=== PATIENT | female | born 1945 | race Hispanic/Latino ===

== ENCOUNTER 2018-04-30 08:22 | Day surgery (SDC) | payer OTHER ==
--- NOTE | 2018-04-26 11:07 | RAD REPORT ---
EXAM DESCRIPTION: RAD - Chest Pa And Lat (2 Views) - 04/26/2018 11:00 am CLINICAL HISTORY: preop Chest pain. COMPARISON: Chest Pa And Lat (2 Views) dated 04/14/2017 FINDINGS: The lungs are clear. The heart is normal in size. No displaced fractures. IMPRESSION: No acute or concerning finding suspected.
[2018-04-26 12:36] LABS: Absolute Lymphocytes (CBC) 1.7 K/uL (0.7-4.9); Absolute Monocytes 0.4 K/uL (0.1-1.3); Absolute Neutrophil 3.2 K/uL (1.8-8.0); Basophils % 0.8 % (0-1.3); Eosinophils % 4.1 % (0-4.4); Hematocrit 36.7 % (36.0-45.0); Lymphocytes % 30.3 % (15.3-44.8); MCH 28.9 pg (27.0-35.0); MCV 84.1 fL (80-100); MPV 9.6 fL (7.6-11.3); Monocytes % 7.9 % (3.3-12.3); RBC Red Blood Cell Count 4.37 M/uL (3.86-4.86)
[2018-04-26 12:42] LABS: Bicarbonate 30 mmol/L (21-32); Glucose Level 104 mg/dL (74-106); Potassium 3.8 mmol/L (3.5-5.1); Sodium Level 141 mmol/L (136-145)
[2018-04-26 12:43] LABS: BUN Blood Urea Nitrogen 15 mg/dL (7-18)
[2018-04-26 13:06] LABS: Protime INR 0.99
--- NOTE | 2018-04-26 17:43 | EKG ---
Test Date: 2018-04-26 Test Time: 10:47:22 Warehouse Operations Manager: BETITO MEASUREMENT RESULTS: Intervals: Rate: 64 UT: 216 QRSD: 92 QT: 398 QTc: 410 [place]: P: 3 UT: 216 QRS: -28 T: -11 INTERPRETIVE STATEMENTS: Sinus rhythm with 1st degree AV block Incomplete right bundle branch block Voltage criteria for left ventricular hypertrophy Abnormal ECG Compared to ECG 04/14/2017 12:20:21 First degree AV block now present Incomplete right bundle-branch block now present Myocardial infarct finding no longer present Electronically Signed On 04-26-18 17:42:11 CDT by Remi Campbell
[~2018-04-30 08:22] MED LIST: CLINDAMYCIN INJ 600 MG in NA CHLORIDE 0.9% 50 ML IV ONE
[2018-04-30] MEDS ORDERED: Ringers Lactate 1,000 ML IV ONE (08:46)
[2018-04-30] MEDS ORDERED: PROPOFOL 200 MG/20 ML VIAL IV ONE (09:41)
[2018-04-30] MEDS ORDERED: LIDOCAINE 2% MPF 5 ML VIAL ONE (09:41)
[2018-04-30] MEDS ORDERED: FENTANYL CITR 100 MCG/2 ML ONE (09:41)
[2018-04-30] MEDS ORDERED: MIDAZOLAM HCL 2 MG/2 ML INJ ONE (09:42)
[2018-04-30] MEDS ORDERED: BUPIVACAINE 0.25% PF 10 ML VIAL ONE (09:46)
[2018-04-30] MEDS: MEPERIDINE HCL 50 MG/ML AMP ONE ×3 (11:00→11:18)
--- NOTE | 2018-04-30 11:03 | P.BOP ---
Preoperative diagnosis: left knee medial meniscus tear Postoperative diagnosis: same, left knee lateral meniscus tear Primary procedure: left knee arthroscopic partial medial and lateral meniscectomies Loss Control Representative: NONE,NONE Estimated blood loss: <5 cc Specimen: none Findings: see dictation Anesthesia: General Complications: None Implants: none Fluids & blood products: per anesthesia record; 29 mins @ 250 mmHg Transferred to: Recovery Room Condition: Good
[2018-04-30] MEDS ORDERED: HYDROCODONE/APAP 7.5/325 MG TAB ONE (12:17)
--- NOTE | 2018-05-01 00:15 | OP ---
Date of Procedure: 04/30/2018 Surgeon: Reji Mejia MD Preoperative Diagnosis: Left knee medial meniscus tear. Postoperative Diagnoses: 1.Left knee medial meniscus tear. 2.Left knee lateral meniscus tear. Procedure Performed: Left knee arthroscopic partial medial and lateral meniscectomies. Anesthesia: General LMA. Fluids: Per Anesthesia record. Estimated Blood Loss: Less than 5 cc. Tourniquet Time: 29 minutes at 250 mmHg. Implants: None. Complications: None. Indication For Procedure: Liberty is a 72-year-old female who presented to my clinic with physical exam findings as well as MRI findings consistent with left knee medial meniscus tear as well as osteo arthritis. She failed conservative treatment measures including corticosteroid injections and given her continued pain and mechanical symptoms, I recommended arthroscopic treatment. She expressed unde rstanding and elected to proceed with operative treatment. Description Of Procedure: After informed consent was obtained, the patient was identified in the pre operative holding area. The left lower extremity was marked. The patient was then brought back to [facility] operating room, transferred to the operating table in supine fashion, and placed under general LMA anesthesia. The left lower extremity was then prepped and draped in usual sterile fashion. A time- out was initiated. The correct patient and procedure were confirmed and identified. The patient did receive her preoperative prophylactic antibiotics. The left lower extremity was then exsanguinated and tourniquet was inflated to 250 mmHg. Standard anteromedial and anterolateral portals were create d and arthroscope was brought into the anterolateral portal and a diagnostic arthroscopy was performe d. Arthroscope was brought into the patellofemoral joint. There was some mild chondromalacia change s of the undersurface of patella as well as trochlear groove. There were no loose bodies found withi n the medial lateral gutters. The arthroscope was then brought in the medial compartment and it was noted the patient had some grade 3 changes of her medial femoral condyle and she was noted to have a complex tear of the medial meniscal body. A partial medial meniscectomy was performed using the arth roscopic shaver and meniscal biter to stable meniscal borders. After this was performed, medial meni scus was found to be stable to probe. The arthroscope was then brought into the intercondylar notch. The patient was noted to have an intact ACL and PCL. The arthroscope was then brought into the lat eral compartment where the patient was noted to have some fraying and a small lateral meniscus tear. Partial lateral meniscectomy was performed using an arthroscopic shaver. There was no significant c hondromalacia noted of the lateral femoral condyle or lateral tibial plateau. The arthroscopic instr uments were then removed without complication. The portals were irrigated with normal saline and mandi sed using a 3-0 Monocryl. Sterile dressings were applied. Tourniquet was let down. The patient was awakened and transferred to PACU in stable condition. Postoperative Plan: We will proceed with post meniscectomy protocol with physical therapy. She will follow up in my clinic in 1 week for wound check and dressing change. 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 She will follow up wit h her primary care provider to discuss long-term anticoagulation. CV/MODL Voice ID: [id number] Report ID: [id number]
== END 2018-04-30 13:05 | disposition home or self-care (01) ==
LOC: OR 08:22
PROVIDERS: ATTEND Orthopaedic Surgery Sports Medicine
PROC: 0SBD4ZZ Excision of Left Knee Joint, Percutaneous Endoscopic Approach (ICD-10-PCS; 2018-04-30)
PROC: 0SBD4ZZ Excision of Left Knee Joint, Percutaneous Endoscopic Approach (ICD-10-PCS; principal; 2018-04-30 09:45)
DX: S83.242A Other tear of medial meniscus, current injury, left knee, initial encounter (principal); I10 Essential (primary) hypertension; Z88.6 Allergy status to analgesic agent; Z88.0 Allergy status to penicillin; Z82.49 Family history of ischemic heart disease and other diseases of the circulatory system; Z80.9 Family history of malignant neoplasm, unspecified; Z83.3 Family history of diabetes mellitus
CPT/HCPCS: 29880; 36415; 71046; 80048; 85025; 85610; 85730; 93005; J2175; J2250; J3010

== ENCOUNTER 2018-07-02 07:59 | Day surgery (SDC) | payer OTHER ==
[2018-07-02 09:45] LABS: Absolute Lymphocytes (CBC) 1.5 K/uL (0.7-4.9); Absolute Monocytes 0.4 K/uL (0.1-1.3); Basophils % 0.5 % (0-1.3); Eosinophils % 3.3 % (0-4.4); Hematocrit 36.1 % (36.0-45.0); Lymphocytes % 23.8 % (15.3-44.8); MPV 9.1 fL (7.6-11.3); Monocytes % 7.2 % (3.3-12.3); RBC Red Blood Cell Count 4.29 M/uL (3.86-4.86)
[2018-07-02] MEDS ORDERED: Ringers Lactate 1,000 ML IV ONE (09:47)
[2018-07-02] MEDS ORDERED: CEFAZOLIN 1GM (PREMIX IV) 1 GM/50 ML BAG ONE (09:50)
[2018-07-02 10:04] LABS: BUN Blood Urea Nitrogen 12 mg/dL (7-18); Bicarbonate 30 mmol/L (21-32); Glucose Level 118 mg/dL (74-106); Potassium 3.9 mmol/L (3.5-5.1); Sodium Level 139 mmol/L (136-145)
--- NOTE | 2018-07-02 10:04 | RAD REPORT ---
EXAM DESCRIPTION: Evelio Fernando (2 Views)07/02/2018 9:48 am CLINICAL HISTORY: Preop COMPARISON: April 2018 FINDINGS: The lungs appear clear of acute infiltrate. The heart is normal size IMPRESSION: No acute abnormalities displayed
[2018-07-02] MEDS ORDERED: LIDOCAINE 1% MPF 30 ML VIAL ONE (10:35)
[2018-07-02] MEDS ORDERED: PROPOFOL 200 MG/20 ML VIAL IV ONE (10:47)
[2018-07-02] MEDS ORDERED: LIDOCAINE 2% MPF 5 ML VIAL ONE (10:47)
[2018-07-02] MEDS ORDERED: ONDANSETRON 4 MG/2 ML VIAL ONE (10:51)
[2018-07-02] MEDS ORDERED: FENTANYL CITR 100 MCG/2 ML ONE (10:59)
[2018-07-02] MEDS: MEPERIDINE HCL 25 MG/0.5 ML ONE ×2 (12:20→12:25)
--- NOTE | 2018-07-02 12:49 | EKG ---
Test Date: 2018-07-02 Test Time: 09:47:44 Ceramic Design Engineer: SURINDER MEASUREMENT RESULTS: Intervals: Rate: 65 DC: 204 QRSD: 92 QT: 404 QTc: 420 [place]: P: 2 DC: 204 QRS: -21 T: 8 INTERPRETIVE STATEMENTS: Normal sinus rhythm Voltage criteria for left ventricular hypertrophy Abnormal ECG Compared to ECG 04/26/2018 10:47:22 First degree AV block no longer present Incomplete right bundle-branch block no longer present Electronically Signed On 07-02-18 12:48:19 ELECTRICAL WORKER by Remi Campbell
[2018-07-02] MEDS ORDERED: HYDROCODONE/APAP 7.5/325 MG TAB ONE (13:05)
--- NOTE | 2018-07-03 01:10 | OP ---
Date of Procedure: 07/02/2018 Surgeon: Apollo Rodríguez MD Preoperative Diagnoses: Left side vision change, headache, rule out temporal arteritis. Postoperative Diagnoses: Left side vision change, headache, rule out temporal arteritis. Procedure: Left temporal artery biopsy. Estimated Blood Loss: Minimal. Specimen: Left temporal artery and probably left temporal vein. Findings: As above. Anesthesia: General. Complications: None. Disposition: Patient tolerated the procedure in stable condition and taken to Recovery in good gener al condition. Procedure In Detail: The patient was brought to the OR and placed in supine position. General anest hesia was begun. The patient was prepped and draped in the usual sterile fashion. Again, a Doppler device was used to identify a branch of the temporal artery and a 4 cm incision was made anteriorly a nd superiorly to the left ear. Subcutaneous tissues divided. There were 2 blood vessels present, on e was an artery and one was a vein. As I did not know which was which, I could only guess. Therefor e, I excised pieces of both of those structures. Proximal and distal control obtained with clamps, a nd then 4-0 silk used to tie off the proximal and distal ends, and a 4 cm vessel excised and sent to Pathology separately. Then, the wound was irrigated and bleeding controlled with cautery. 4-0 chrom ic was used to reapproximate the subcutaneous tissue and close the skin. Sterile dressing was applie d. The patient was awakened and taken to Recovery in good general condition. Discharge Note: The patient will go to day surgery, then home when stable. Disposition: Home. Condition: Stable. Discharge Instructions: Resume home medications and diet. . Activities, as tolerated. No heavy li fting. Remove outer dressing in 2 days. Shower. Keep wound clean and dry. Keep steri-strips on at all times. Follow up in my office in 2 weeks, call for appointment. Tylenol No. 3, one tablet p.o. q.4 h. p.r.n. pain. Follow up with Dr. Clark Nagy in 1 week. ESTELITA/HUSEYIN Voice ID: [id number] Report ID: [id number]
== END 2018-07-02 13:35 | disposition home or self-care (01) ==
LOC: OR 07:59
PROVIDERS: ATTEND Surgery
PROC: 03BT0ZX Excision of Left Temporal Artery, Open Approach, Diagnostic (ICD-10-PCS; principal; 2018-07-02 10:30)
DX: R51 Headache (principal); I70.8 Atherosclerosis of other arteries; H53.9 Unspecified visual disturbance; I10 Essential (primary) hypertension; K21.9 Gastro-esophageal reflux disease without esophagitis; E66.9 Obesity, unspecified; Z88.0 Allergy status to penicillin; Z88.6 Allergy status to analgesic agent
CPT/HCPCS: 36415; 37609; 71046; 80048; 85025; 88305; 93005; J0690; J2175; J2405; J2704; J3010

== ENCOUNTER 2018-07-12 20:34 | Emergency (ER) | payer OTHER ==
[2018-07-12] MEDS ORDERED: KETOROLAC 30 MG/ML INJ ONE (21:28)
--- NOTE | 2018-07-12 21:30 | RAD REPORT ---
EXAM DESCRIPTION: CT - Head C Spine Cap Wo Con - 07/12/2018 9:08 pm TECHNIQUE: Computed axial tomography of the head and cervical spine was obtained. Coronal and sagitt al reconstruction was performed Computed axial tomography of the chest, abdomen and pelvis was obtained. Contrast was not requested. All CT scans are performed using dose optimization technique as appropriate and may include automated exposure control or mA/KV adjustment according to patient size. CLINICAL HISTORY: Head and neck injury with chest and abdominal pain status post fall COMPARISON: None FINDINGS: Left posterior scalp hematoma without underlying skull fracture An intracranial bleed is not seen. The ventricles are normal in caliber. An extra-axial fluid collection is not noted. . Fluid within the sinuses/mastoids is not seen. A cervical fracture is not seen. No dislocation is noted. The evaluation of mediastinum, rosanne, vessels, solid organs and bowel are limited secondary to the lac k of contrast administration. A mediastinal hematoma is not noted. A pleural effusion is not seen. A lung contusion is not present. 4 millimeter left upper lobe nodule The liver,spleen, pancreas, adrenals,kidneys and bladder do not demonstrate atraumatically injury. IMPRESSION: 1. No acute intracranial abnormality is seen. 2. A cervical fracture is not visualized. If the patient continues have symptoms to suggest intracran ial/spinal cord pathology MRI be recommended 3. No traumatic abnormality involving the chest/abdomen/pelvis. 4. 4 millimeter left upper lobe nodule. If the patient is high risk per Fleischner guidelines followu p CT chest in 1 year would be recommended
--- NOTE | 2018-07-12 21:39 | ER ---
Nurse's Notes [facility] Name: Liberty Gutierrez Age: 72 yrs Sex: Female : 1945 Arrival Date: 07/12/2018 Time: 20:38 Bed 19 Private MD: Frankie Elder Diagnosis: Acute post-traumatic headache Presentation: 07/12 20:42 Presenting complaint: Patient states: Reports slip and fall while at a store today at aj 1920. Patient hit back of head on floor. Denies LOC. Reports dizziness and nausea. Care prior to arrival: None. Mechanism of Injury: Fall from standing position. Trauma event details: Injury occurred in the [facility], Injury occurred: in a public building. Injury occurred: July 12, 2018 Injury occurred at: 19:20. 20:42 Acuity: TISHA 3 aj 20:42 Method Of Arrival: Wheelchair aj Trauma Activation: Alert Physician: ED Physician; Name: ; Notified At: ; Arrived At: Physician: General Surgeon; Name: ; Notified At: ; Arrived At: Physician: Radiology; Name: ; Notified At: ; Arrived At: Physician: Respiratory; Name: ; Notified At: ; Arrived At: Physician: Lab; Name: ; Notified At: ; Arrived At: Historical: - Allergies: 20:46 PENICILLINS; aj 20:46 Morphine; aj - PMHx: 20:46 Hypertension; aj - Immunization history: Last tetanus immunization: unknown. - Social history:: Smoking status: Patient/guardian denies using tobacco, Patient/guardian denies using alcohol, street drugs, The patient lives with family. - Ebola Screening: : Patient negative for fever greater than or equal to 101.5 degrees Fahrenheit, and additional compatible Ebola Virus Disease symptoms Patient denies exposure to infectious person Patient denies travel to an Ebola-affected area in the 21 days before illness onset No symptoms or risks identified at this time. - Family history:: not pertinent. - Hospitalizations: : No recent hospitalization is reported. Screenin:00 Abuse screen: Denies threats or abuse. Denies injuries from another. Nutritional rr5 screening: No deficits noted. Tuberculosis screening: No symptoms or risk factors identified. Fall Risk Ambulatory Aid- Crutches/Cane/Walker (15 pts). Total [place]ll[place] Fall Scale indicates Low Risk Score (25-44 pts). Fall prevention measures have been instituted. Side Rails Up X 2 1:1 attendant Assigned to Pt. Frequent Obs/Assesments occuring Family Present and informed to notify staff if they need to leave bedside As available Patient and Family Educated on Fall Prevention Program and strategies. Primary Survey: 20:42 NO uncontrolled hemorrhage observed. Breathing/Chest: Respiratory pattern: regular, aj Respiratory effort: spontaneous, unlabored, Breath sounds: clear, Chest inspection: symmetrical rise and fall of the chest. Circulation: Skin color: pink, Skin temperature: warm, dry. Disability Alert. Assessment: 20:42 General: Appears in no apparent distress. comfortable, Behavior is calm, cooperative, aj appropriate for age. Pain: Complains of pain in left parietal area, right parietal area and occipital area. Neuro: Level of Consciousness is awake, alert, obeys commands, Oriented to person, place, time, situation, Appropriate for age. Respiratory: Airway is patent Respiratory effort is even, unlabored, Respiratory pattern is regular, symmetrical. Derm: Skin is intact, is healthy with good turgor, Skin is pink, warm \T\ dry. normal. Injury Description: Bruise sustained to scalp. 21:00 Injury Description: swelling at scalp area noted (occipital parietal area). rr5 21:00 General: Appears in no apparent distress. comfortable, Behavior is calm, cooperative, rr5 appropriate for age. Pain:. Pain: Complains of pain in occipital parietal area Pain does not radiate. Pain currently is 10 out of 10 on a pain scale. Quality of pain is described as aching. Neuro: Level of Consciousness is awake, alert, obeys commands, Oriented to person, place, time, situation. Cardiovascular: Capillary refill < 3 seconds Patient's skin is warm and dry. Respiratory: Airway is patent Respiratory effort is even, unlabored, Respiratory pattern is regular, symmetrical. GI: : No signs and/or symptoms were reported regarding the genitourinary system. EENT: No signs and/or symptoms were reported regarding the EENT system. Derm: Skin is intact, is healthy with good turgor, Skin is pink, warm \T\ dry. normal. Musculoskeletal: No signs and/or symptoms reported regarding the musculoskeletal system. 21:30 Reassessment: Patient appears in no apparent distress at this time. Patient and/or rr5 family updated on plan of care and expected duration. Pain level reassessed. Patient is alert, oriented x 3, equal unlabored respirations, skin warm/dry/pink. feeling better now. Patient states symptoms have improved. 22:00 Reassessment: discharge instruction given and explained without complaints made. rr5 Vital Signs: 20:42 BP 173 / 76; Pulse 67; Resp 20; Temp 98.2; Pulse Ox 96% on R/A; Weight 81.65 kg; Height aj 5 ft. 4 in. (162.56 cm); 21:30 BP 146 / 68; Pulse 66; Resp 18; Pulse Ox 99% ; rr5 22:00 BP 133 / 70; Pulse 69; Resp 18; Pulse Ox 99% ; rr5 20:42 Body Mass Index 30.90 (81.65 kg, 162.56 cm) aj [place] Coma Score: 20:42 Eye Response: spontaneous(4). Verbal Response: oriented(5). Motor Response: obeys aj commands(6). Total: 15. Trauma Score (Adult): 20:42 Eye Response: spontaneous(1); Verbal Response: oriented(1); Motor Response: obeys aj commands(2); Systolic BP: > 89 mm Hg(4); Respiratory Rate: 10 to 29 per min(4); [place] Score: 15; Trauma Score: 12 ED Course: 20:38 Patient arrived in ED. es 20:38 Frankie Elder MD is Private Physician. es 20:44 Triage completed. aj 20:46 Arm band placed on left wrist. Patient placed in an exam room. aj 20:47 Abby Thomas MD is Attending Physician. ma2 20:53 Ryan Painting RN is Primary Nurse. rr5 21:00 Patient has correct armband on for positive identification. Placed in gown. Bed in low rr5 position. Call light in reach. Side rails up X2. 21:[address] via stretcher. nj 21:08 CT completed. Patient tolerated procedure well. Patient moved back from CT. nj 21:08 CT Traumagram (Head C Spine CAP wo con) In Process Unspecified. EDMS 22:00 No provider procedures requiring assistance completed. Patient did not have IV access rr5 during this emergency room visit. Administered Medications: 21:26 Drug: TORadol 60 mg Route: IM; Site: left gluteus; rr5 22:00 Follow up: Response: No adverse reaction; Medication administered at discharge. rr5 Outcome: 21:38 Discharge ordered by . celsa 22:00 Discharged to home ambulatory, with family. rr5 22:00 Condition: stable 22:00 Discharge instructions given to patient, family, Instructed on discharge instructions, follow up and referral plans. Demonstrated understanding of instructions, follow-up care. 22:24 Patient left the ED. rr5 Signatures: Dispatcher [employer] Nieves Rock, RN RN Dia Magallanes Nathan nj Alzahri, Mohammad, MD MD ma2 Ryan Painting RN RN rr5
--- NOTE | 2018-07-12 21:39 | EDPHYS ---
Physician Documentation [facility] Name: Liberty Gutierrez Age: 72 yrs Sex: Female : 1945 Arrival Date: 07/12/2018 Time: 20:38 Bed 19 Private MD: Frankie Elder ED Physician Abby Thomas HPI: 07/12 20:52 This 72 yrs old Female presents to ER via Wheelchair with complaints of Fall ma2 Injury. 20:52 Details of fall: The patient fell from an upright position. Onset: The symptoms/episode ma2 began/occurred suddenly, 1 hour(s) ago. Associated injuries: The patient sustained injury to the head, injury to the chest. Severity of symptoms: At their worst the symptoms were moderate, in the emergency department the symptoms are unchanged. The patient has not experienced similar symptoms in the past. Historical: - Allergies: 20:46 PENICILLINS; aj 20:46 Morphine; aj - PMHx: 20:46 Hypertension; aj - Immunization history: Last tetanus immunization: unknown. - Social history:: Smoking status: Patient/guardian denies using tobacco, Patient/guardian denies using alcohol, street drugs, The patient lives with family. - Ebola Screening: : Patient negative for fever greater than or equal to 101.5 degrees Fahrenheit, and additional compatible Ebola Virus Disease symptoms Patient denies exposure to infectious person Patient denies travel to an Ebola-affected area in the 21 days before illness onset No symptoms or risks identified at this time. - Family history:: not pertinent. - Hospitalizations: : No recent hospitalization is reported. ROS: 20:52 Constitutional: Negative for fever, chills, and weight loss. ma2 20:52 MS/extremity: Positive for pain, Negative for bite, decreased range of motion, rash, tenderness. 20:52 All other systems are negative. Exam: 20:52 Constitutional: This is a well developed, well nourished patient who is awake, alert, ma2 and in no acute distress. 20:52 Chest/axilla: Normal chest wall appearance and motion. Nontender with no deformity. No lesions are appreciated. Cardiovascular: Regular rate and rhythm with a normal S1 and S2. No gallops, murmurs, or rubs. Normal PMI, no JVD. No pulse deficits. Respiratory: Lungs have equal breath sounds bilaterally, clear to auscultation and percussion. No rales, rhonchi or wheezes noted. No increased work of breathing, no retractions or nasal flaring. 20:52 Abdomen/GI: Soft, non-tender, with normal bowel sounds. No distension or tympany. No guarding or rebound. No evidence of tenderness throughout. MS/ Extremity: Pulses equal, no cyanosis. Neurovascular intact. Full, normal range of motion. Neuro: Awake and alert, GCS 15, oriented to person, place, time, and situation. Cranial nerves II-XII grossly intact. Motor strength 5/5 in all extremities. Sensory grossly intact. Cerebellar exam normal. Normal gait. 20:52 Head/face: Exam is negative for abrasion(s), contusion, deformity, laceration(s), raccoon eyes, Noted is hematoma. 20:52 Chest/axilla: Palpation: tenderness, that is moderate, of the left lateral posterior chest. Vital Signs: 20:42 BP 173 / 76; Pulse 67; Resp 20; Temp 98.2; Pulse Ox 96% on R/A; Weight 81.65 kg; Height aj 5 ft. 4 in. (162.56 cm); 21:30 BP 146 / 68; Pulse 66; Resp 18; Pulse Ox 99% ; rr5 22:00 BP 133 / 70; Pulse 69; Resp 18; Pulse Ox 99% ; rr5 20:42 Body Mass Index 30.90 (81.65 kg, 162.56 cm) aj [place] Coma Score: 20:42 Eye Response: spontaneous(4). Verbal Response: oriented(5). Motor Response: obeys aj commands(6). Total: 15. Trauma Score (Adult): 20:42 Eye Response: spontaneous(1); Verbal Response: oriented(1); Motor Response: obeys aj commands(2); Systolic BP: > 89 mm Hg(4); Respiratory Rate: 10 to 29 per min(4); Jose Alberto Score: 15; Trauma Score: 12 MDM: 20:47 Patient medically screened. ma2 20:52 Differential diagnosis: abrasion, contusion, fracture, multiple trauma, sprain, strain. ma2 21:38 Data reviewed: vital signs, nurses notes, radiologic studies. Counseling: I had a ma2 detailed discussion with the patient and/or guardian regarding: the historical points, exam findings, and any diagnostic results supporting the discharge/admit diagnosis, the presence of at least one elevated blood pressure reading (>120/80) during this emergency department visit, the need for outpatient follow up. Response to treatment: the patient's symptoms have resolved after treatment. 07/12 20:52 Order name: CT Traumagram (Head C Spine CAP wo con); Complete Time: 21:33 ma2 Administered Medications: 21:26 Drug: TORadol 60 mg Route: IM; Site: left gluteus; rr5 22:00 Follow up: Response: No adverse reaction; Medication administered at discharge. rr5 Disposition: 07/12/18 21:38 Discharged to Home. Impression: Acute post-traumatic headache. - Condition is Stable. - Discharge Instructions: Muscle Pain, Adult, Fall Prevention in Hospitals, Adult. - Medication Reconciliation Form, Thank You Letter, Antibiotic Education, Prescription Opioid Use form. - Follow up: Private Physician; When: Tomorrow; Reason: Continuance of care. Signatures: Dispatcher [employer] Nieves Rock RN RN aj Alzahri, Mohammad, MD MD ma2 Ryan Painting RN RN rr5 Corrections: (The following items were deleted from the chart) 22: 21:38 07/12/2018 21:38 Discharged to Home. Impression: Acute post-traumatic headache. rr5 Condition is Stable. Forms are Medication Reconciliation Form, Thank You Letter, Antibiotic Education, Prescription Opioid Use. Follow up: Private Physician; When: Tomorrow; Reason: Continuance of care. ma2
== END 2018-07-12 22:24 | disposition home or self-care (01) ==
LOC: ER 20:34
DX: G44.319 Acute post-traumatic headache, not intractable (principal); W19.XXXA Unspecified fall, initial encounter; Y93.9 Activity, unspecified; Y92.9 Unspecified place or not applicable; I10 Essential (primary) hypertension; Z88.0 Allergy status to penicillin; Z88.5 Allergy status to narcotic agent
CPT/HCPCS: 70450; 71250; 72125; 96372; 99284

== ENCOUNTER 2019-06-06 12:33 | Emergency (ER) | payer OTHER ==
[2019-06-06] MEDS ORDERED: TRAMADOL HCL 50 MG TAB ONE (13:06)
--- NOTE | 2019-06-06 13:49 | RAD REPORT ---
EXAM DESCRIPTION: CT - [id number] - 06/06/2019 1:19 pm CLINICAL HISTORY: Trip and COMPARISON: None. TECHNIQUE: Axial 5 mm thick images of the head were obtained. Axial 2 mm thick images of the cervic al spine were obtained with sagittal and coronal reconstruction images generated and reviewed. All CT scans are performed using dose optimization technique as appropriate and may include automated exposure control or mA/KV adjustment according to patient size. FINDINGS: No intracranial hemorrhage, mass, edema or acute intracranial finding. No suspicion for acute infarct ion. No extra-axial fluid collections. Mastoid air cells and paranasal sinuses are clear. No globe or orbit abnormality seen. Mild atrophy and chronic ischemic changes are present. Ventricles are in pro portion. Cervical body height and alignment are normal. No disk space narrowing. No fracture or acute bony abn ormality. Prominent anterior disc bulge and endplate spurring changes are present C4-C7. Central josette l detail is inherently limited. No paraspinal mass or hematoma. IMPRESSION: Atrophy and chronic ischemic changes are present but no acute intracranial finding. Cervical spine degenerative changes are present without an acute finding.
--- NOTE | 2019-06-06 13:52 | RAD REPORT ---
EXAM DESCRIPTION: CT - Thorax Wo Con - 06/06/2019 1:19 pm CLINICAL HISTORY: Left anterior chest and rib pain COMPARISON: CT trauma imaging June 2018 TECHNIQUE: Axial 5 mm thick images of the chest were obtained without IV contrast. All CT scans are performed using dose optimization technique as appropriate and may include automated exposure control or mA/KV adjustment according to patient size. FINDINGS: No acute mass or infiltrate in the lung parenchyma. A 4-5 mm noncalcified nodule in the la teral left upper lung field (image 19/56) has not changed since June 2018. No other significant l bhavna parenchymal process. No pleural thickening or pleural effusion. No pneumothorax. No abnormal mediastinal or hilar masses or lymphadenopathy seen. No gross aortic or pulmonary artery finding suspected. No pericardial thickening or effusion. No rib fracture or focal rib lesion identifiable. No chest wall mass. Patient has degenerative change at the left shoulder joint. The partially imaged shoulder joint and clavicle show no acute findings. Prominent thoracic spine degenerative changes are present with bridging ossification. No compression fracture or pathologic bone process. IMPRESSION: No significant or suspicious CT chest finding identifiable. The small left upper lobe pulmonary nodule has not changed size in 11 months. At less than 6 mm this is not regarded as suspicious. No additional follow-up is felt to be warranted. No chest wall abnormality or rib lesion to explain patient's anterior left rib pain history.
--- NOTE | 2019-06-06 13:57 | RAD REPORT ---
EXAM DESCRIPTION: RAD - Hip Right 2 View - 06/06/2019 1:39 pm CLINICAL HISTORY: Fall, right hip pain COMPARISON: None. FINDINGS: AP and frog-leg views of the right hip were obtained. There is no fracture or dislocation . No acute or destructive bony process seen. Minimal pubic symphysis and SI joint degenerative hdz es. IMPRESSION: Negative right hip examination for acute findings.
--- NOTE | 2019-06-06 13:58 | RAD REPORT ---
EXAM DESCRIPTION: RAD - Knee Right 3 View - 06/06/2019 1:39 pm CLINICAL HISTORY: Fall, knee pain COMPARISON: Right knee December 2012 FINDINGS: Total knee prosthesis has been placed since prior imaging. No fracture of the [place] bone. No radiographic evidence for loosening. No implant or [place] bone acute finding.No joint effusion se en. No foreign body or other soft tissue abnormality. IMPRESSION: Negative right knee for acute bone or implant finding. No acute joint finding.
--- NOTE | 2019-06-06 13:59 | RAD REPORT ---
EXAM DESCRIPTION: RAD - Knee Left 3 View - 06/06/2019 1:39 pm CLINICAL HISTORY: Fall, left knee pain COMPARISON: December 2012 FINDINGS: No fracture, dislocation or periosteal reaction.No joint effusion seen. Minimal medial com partment narrowing is present. Medial and lateral compartment marginal spurring present and there is spurring along the articular margins of the patella. Mild spur at the quadriceps attachment. No soft tissue abnormality. IMPRESSION: Left knee degenerative changes are present showing minimal progression from 2013. No acute bone or joint finding. Clinical concerns for internal derangement or occult bony injury could be further assessed with MR im aging.
--- NOTE | 2019-06-06 14:00 | RAD REPORT ---
EXAM DESCRIPTION: RAD - Wrist Left 3 View - 06/06/2019 1:39 pm CLINICAL HISTORY: Fall from standing, left wrist pain COMPARISON: None. FINDINGS: No fracture is identified. There is no dislocation or periosteal reaction noted. No foreig n body or other soft tissue abnormality. Patient has carpal bone degenerative change relatively mild for age. No destructive bone process. IMPRESSION: Negative left wrist examination.
--- NOTE | 2019-06-06 14:20 | EDPHYS ---
Physician Documentation [facility] Name: Liberty Gutierrez Age: 73 yrs Sex: Female : 1945 Arrival Date: 06/06/2019 Time: 12:37 Bed 24 Private MD: Frankie Elder ED Physician Jey Leblanc HPI: 06/06 13:06 This 73 yrs old Female presents to ER via Ambulatory with complaints of Fall pm1 Injury. 13:06 Details of fall: The patient fell from an upright position, while standing. Onset: The pm1 symptoms/episode began/occurred last night. Associated injuries: The patient sustained injury to the head, pain, bent the right side of glasses and had right sided headache that resolved with ibuprofen this AM, injury to the chest, specifically the left breast, pain, right lateral aspect of neck, pain, left knee and right knee, contusion, left wrist, pain, right hip, pain. Severity of symptoms: in the emergency department the symptoms have improved. The patient has not experienced similar symptoms in the past. The patient has been recently seen by a physician: the patient's primary care provider, Dr. Owen with different complaint(s), Left sided neck pain. Has physical therapy next week for her left sided neck pain and dizziness. 13:06 Patient was walking in the dark and missed a step at her daughter's house and landed pm1 with her left hand forward and hit a couch, and then landed on the ground on her right side and knees. Historical: - Allergies: 12:45 Morphine; hb 12:45 PENICILLINS; hb - Home Meds: 12:45 metoprolol tartrate 100 mg Oral tab 1 tab once daily [Active]; meclizine Oral [Active]; hb - PMHx: 12:45 Hypertension; Vertigo; hb - Immunization history:: Adult Immunizations up to date. - Social history:: Smoking status: Patient/guardian denies using tobacco. - Ebola Screening: : No symptoms or risks identified at this time. ROS: 13:06 Constitutional: Negative for fever, chills, and weight loss, Eyes: Negative for injury, pm1 pain, redness, and discharge, ENT: Negative for injury, pain, and discharge. 13:06 Cardiovascular: Negative for chest pain, palpitations, and edema, Respiratory: Negative for shortness of breath, cough, wheezing, and pleuritic chest pain, Abdomen/GI: Negative for abdominal pain, nausea, vomiting, diarrhea, and constipation, Back: Negative for injury and pain. 13:06 Neuro: Negative for headache, weakness, numbness, tingling, and seizure. 13:06 Neck: Positive for pain with movement, of the right lateral aspect of neck, Negative for bony tenderness. 13:06 MS/extremity: Positive for pain, of the right hip and right knee and left wrist and left knee, Negative for decreased range of motion, deformity. 13:06 Skin: Positive for ecchymosis, of the right knee, Negative for swelling. Exam: 13:06 Constitutional: This is a well developed, well nourished patient who is awake, alert, pm1 and in no acute distress. Head/Face: Normocephalic, atraumatic. Cardiovascular: Regular rate and rhythm with a normal S1 and S2. No gallops, murmurs, or rubs. Normal PMI, no JVD. No pulse deficits. Respiratory: Lungs have equal breath sounds bilaterally, clear to auscultation and percussion. No rales, rhonchi or wheezes noted. No increased work of breathing, no retractions or nasal flaring. Abdomen/GI: Soft, non-tender, with normal bowel sounds. No distension or tympany. No guarding or rebound. No evidence of tenderness throughout. Back: No spinal tenderness. No costovertebral tenderness. Full range of motion. 13:06 Skin: Warm, dry with normal turgor. Normal color with no rashes, no lesions, and no evidence of cellulitis. 13:06 Neck: External neck: crepitus, is not appreciated, tenderness, right lateral side of neck, C-spine: vertebral tenderness, is not appreciated. 13:06 Chest/axilla: Inspection: normal, Palpation: tenderness, that is mild, of the left breast, that totally reproduces the patient's complaints. 13:06 Musculoskeletal/extremity: Extremities: grossly normal except: noted in the right hip: tenderness, noted in the right knee: contusion, tenderness, noted in the left knee: tenderness, Noted in left wrist: tenderness, no evidence of decreased ROM, deformity. Vital Signs: 12:44 BP 146 / 72; Pulse 66; Resp 16; Temp 98.2; Pulse Ox 97% on R/A; Weight 81.65 kg; Height hb 5 ft. 2 in. (157.48 cm); Pain 5/10; 12:44 Body Mass Index 32.92 (81.65 kg, 157.48 cm) hb MDM: 12:46 Patient medically screened. pm1 14:15 Data reviewed: vital signs. Data interpreted: Pulse oximetry: on room air is 97 %. pm1 Interpretation: normal. Counseling: I had a detailed discussion with the patient and/or guardian regarding: the historical points, exam findings, and any diagnostic results supporting the discharge/admit diagnosis, radiology results, the need for outpatient follow up, to return to the emergency department if symptoms worsen or persist or if there are any questions or concerns that arise at home. 06/06 12:59 Order name: CT Head C Spine; Complete Time: 14:08 pm1 06/06 12:59 Order name: CT Chest Wo Con; Complete Time: 14:08 pm1 06/06 12:59 Order name: Hip Right 2 View XRAY; Complete Time: 14:08 pm1 06/06 12:59 Order name: Knee Right 3 View XRAY; Complete Time: 14:08 pm1 06/06 12:59 Order name: Knee Left 3 View XRAY; Complete Time: 14:08 pm1 06/06 12:59 Order name: Wrist Left (3 View) XRAY; Complete Time: 14:08 pm1 06/06 14:26 Order name: Wrist Splint; Complete Time: 14:36 pm1 Administered Medications: 13:08 Drug: traMADol 50 mg Route: PO; aj1 Disposition: 06/07 07:02 Co-signature as Attending Physician, Jey Leblanc MD Did not see or evaluate patient. ps1 Signing chart for administrative purposes. Not an endorsement of care. . Disposition: 06/06/19 14:19 Discharged to Home. Impression: Fall on same level from slipping, tripping and stumbling, Pain in left wrist, Pain in right hip, Contusion of left knee, Contusion of right knee, Contusion of left front wall of thorax. - Condition is Stable. - Discharge Instructions: Contusion, Chest Contusion, Adult, Wrist Pain, [id number], Hip Pain. - Prescriptions for Tramadol 50 mg Oral Tablet - take 1 tablet by ORAL route every 8 hours as needed; 12 tablet. - Medication Reconciliation Form, Thank You Letter, Antibiotic Education, Prescription Opioid Use form. - Follow up: Emergency Department; When: As needed; Reason: Worsening of condition. Follow up: Franike Elder MD; When: 2 - 3 days; Reason: Recheck today's complaints, Continuance of care, Re-evaluation by your physician. - Problem is new. - Symptoms have improved. Signatures: Dispatcher [employer] EDMS Marsha Oakes RN RN aj1 Xiang Cedeño NP [employer] MANAGER pm1 Liz Pendleton RN RN Jey Leblanc MD MD ps1 Corrections: (The following items were deleted from the chart) 06/06 14:37 14:19 06/06/2019 14:19 Discharged to Home. Impression: Fall on same level from aj1 slipping, tripping and stumbling; Pain in left wrist; Pain in right hip; Contusion of left knee; Contusion of right knee; Contusion of left front wall of thorax. Condition is Stable. Forms are Medication Reconciliation Form, Thank You Letter, Antibiotic Education, Prescription Opioid Use. Follow up: Emergency Department; When: As needed; Reason: Worsening of condition. Follow up: Frankie Elder; When: 2 - 3 days; Reason: Recheck today's complaints, Continuance of care, Re-evaluation by your physician. Problem is new. Symptoms have improved. pm1
--- NOTE | 2019-06-06 14:20 | ER ---
Nurse's Notes [facility] Name: Liberty Gutierrez Age: 73 yrs Sex: Female : 1945 Arrival Date: 06/06/2019 Time: 12:37 Bed 24 Private MD: Frankie Elder Diagnosis: Fall on same level from slipping, tripping and stumbling;Pain in left wrist;Pain in right hip;Contusion of left knee;Contusion of right knee;Contusion of left front wall of thorax Presentation: 06/06 12:41 Presenting complaint: Left wrist, right knee, right hip, and left breast pain after hb mechanical fall from standing last night. Daughter reports she was taking food out to garage refrigerator in the dark and missed the step down to floor level. Negative LOC. Care prior to arrival: None. 12:41 Acuity: TISHA 4 hb 12:41 Method Of Arrival: Ambulatory hb 13:30 Transition of care: patient was not received from another setting of care. Onset of aj1 symptoms was June 06, 2019. Risk Assessment: Do you want to hurt yourself or someone else? Patient reports no desire to harm self or others. 13:30 Initial Sepsis Screen: Does the patient meet any 2 criteria? No. Patient's initial aj1 sepsis screen is negative. Does the patient have a suspected source of infection? No. Patient's initial sepsis screen is negative. Historical: - Allergies: 12:45 Morphine; hb 12:45 PENICILLINS; hb - Home Meds: 12:45 metoprolol tartrate 100 mg Oral tab 1 tab once daily [Active]; meclizine Oral [Active]; hb - PMHx: 12:45 Hypertension; Vertigo; hb - Immunization history:: Adult Immunizations up to date. - Social history:: Smoking status: Patient/guardian denies using tobacco. - Ebola Screening: : No symptoms or risks identified at this time. Screenin:02 Abuse screen: Denies threats or abuse. Denies injuries from another. Nutritional aj1 screening: No deficits noted. Tuberculosis screening: No symptoms or risk factors identified. 14:36 Fall Risk None identified. aj1 Assessment: 13:02 General: Appears in no apparent distress. uncomfortable, Behavior is calm, cooperative, aj1 appropriate for age. Pain: Complains of pain in left breast, right hip and right knee. Neuro: Level of Consciousness is awake, alert, obeys commands. Cardiovascular: Patient's skin is warm and dry. Respiratory: Airway is patent Respiratory effort is even, unlabored, Respiratory pattern is regular, symmetrical. GI: No signs and/or symptoms were reported involving the gastrointestinal system. : No signs and/or symptoms were reported regarding the genitourinary system. EENT: No signs and/or symptoms were reported regarding the EENT system. Derm: No signs and/or symptoms reported regarding the dermatologic system. Skin is pink, warm \T\ dry. normal. Musculoskeletal: Range of motion: limited in right knee. Vital Signs: 12:44 BP 146 / 72; Pulse 66; Resp 16; Temp 98.2; Pulse Ox 97% on R/A; Weight 81.65 kg; Height hb 5 ft. 2 in. (157.48 cm); Pain 5/10; 12:44 Body Mass Index 32.92 (81.65 kg, 157.48 cm) hb ED Course: 12:37 Patient arrived in ED. mr 12:38 Frankie Elder MD is Private Physician. mr 12:43 Triage completed. hb 12:45 Xiang Cedeño, ROBERTO CARLOS is PHCP. pm1 12:45 Jey Leblanc MD is Attending Physician. pm1 12:45 Arm band placed on. hb 12:47 Marsha Oakes, RN is Primary Nurse. aj1 13:02 Patient has correct armband on for positive identification. Bed in low position. Call aj1 light in reach. 13:02 No provider procedures requiring assistance completed. aj1 13:19 CT Head C Spine In Process Unspecified. EDMS 13:20 CT Chest Wo Con In Process Unspecified. EDMS 13:37 Hip Right 2 View XRAY In Process Unspecified. EDMS 13:37 Knee Right 3 View XRAY In Process Unspecified. EDMS 13:37 Knee Left 3 View XRAY In Process Unspecified. EDMS 13:37 Wrist Left (3 View) XRAY In Process Unspecified. EDMS 14:16 Frankie Elder MD is Referral Physician. pm1 14:35 Patient did not have IV access during this emergency room visit. aj1 Administered Medications: 13:08 Drug: traMADol 50 mg Route: PO; aj1 Outcome: 14:19 Discharge ordered by . pm1 14:36 Discharged to home ambulatory, with family. aj1 14:36 Condition: good 14:36 Discharge instructions given to patient, family, Instructed on discharge instructions, follow up and referral plans. medication usage, Demonstrated understanding of instructions, follow-up care, medications, Prescriptions given X 1. 14:37 Patient left the ED. aj1 Signatures: Dispatcher [employer] EDMS Marsha Oakes RN RN aj1 Denise Cline mr Xiang Cedeño, AUDIT MGR AUDIT MGR pm1 Liz Pendleton RN RN hb
[2019-06-06 20:32] VITALS: BP 146/72; TEMP 98.2; O2SAT 97
== END 2019-06-06 14:37 | disposition home or self-care (01) ==
LOC: ER 12:33
DX: S20.212A Contusion of left front wall of thorax, initial encounter (principal); S80.02XA Contusion of left knee, initial encounter; S80.01XA Contusion of right knee, initial encounter; M25.551 Pain in right hip; W01.0XXA Fall on same level from slipping, tripping and stumbling without subsequent striking against object, initial encounter; Y93.89 Activity, other specified; Y92.89 Other specified places as the place of occurrence of the external cause; I10 Essential (primary) hypertension; Z88.0 Allergy status to penicillin; Z88.5 Allergy status to narcotic agent
CPT/HCPCS: 70450; 71250; 72125; 99283